=== PATIENT | male | born 1935 | race Caucasian/White ===

== ENCOUNTER → 2017-11-18 | Outpatient (CLI) | payer MEDICARE, BC ==
[~2017-11-18] MED LIST: AMLO5; ASPI81EC PO; Adult Low Dose81 MG PO; BISA5EC PO; FURO40 PO; Hydrochlorothia25 MG; LIVALO1 MG PO; METO2.5 PO; METO25ER PO; METO50ER; POTCHL20ER PO; WARF5 PO
[2017-11-18 18:36] LABS: Source, Urine Clean Catch
[2017-11-18 18:48] LABS: Appearance, Urine Clear (Clear); Bilirubin, Urine Neg (Neg); Blood, Urine Neg (Neg); Color, Urine Yellow (P-Yellow); Glucose Qualitative, Urine Neg (Neg); Ketones, Urine Neg (Neg); Leukocyte Esterase, Urine Neg (Neg); Nitrite, Urine Neg (Neg); Protein, Urine Neg (Neg); Urobilinogen, Urine NORM (Normal)
== END ==
LOC: LAB SHORT 18:29
PROVIDERS: Family Medicine
DX: N39.0 Urinary tract infection, site not specified (principal)
CPT/HCPCS: 81003